=== PATIENT | male | born 1980 | race Caucasian/White ===

== ENCOUNTER 2021-06-08 16:37 | Emergency (ER) | payer OTHER ==
[~2021-06-08] VITALS: Ht 170.2 cm; Wt 70.0 kg
[2021-06-08 16:49] VITALS: BP 124/72
== END 2021-06-08 17:53 | disposition left against medical advice (07) ==
LOC: ER 16:37 → EDBD 16:37 → ER 17:53
DX: F10.129 Alcohol abuse with intoxication, unspecified (principal); Y90.0 Blood alcohol level of less than 20 mg/100 ml
CPT/HCPCS: 99283